=== PATIENT | male | born 2000 | race African-American/Black ===

== ENCOUNTER 2023-05-10 01:15 | Emergency (ER) | payer OTHER ==
[~2023-05-10] VITALS: Ht 193 cm; Wt 113.6 kg
[2023-05-10 04:12] VITALS: TEMP 97.6
[2023-05-10] MEDS ORDERED: NS 1,000 ML IV ONE (04:25)
[2023-05-10 05:06] LABS: ETHYL ALCOHOL (ETHANOL) 0.105 % (0.000-0.010)
[2023-05-10 05:08] LABS: BLOOD UREA NITROGEN 11 MG/DL (9-23); CALCIUM LEVEL 8.8 MG/DL (8.5-10.1); CARBON DIOXIDE LEVEL 26 MMOL/L (20-31); CHLORIDE LEVEL 102 MMOL/L (98-107); CREATININE FOR GFR 1.03 MG/DL (0.70-1.30); GLOMERULAR FILTRATION RATE > 60.0 (>60); GLUCOSE, FASTING 99 MG/DL (60-100); POTASSIUM SERUM 4.2 MMOL/L (3.5-5.1); SODIUM LEVEL 137 MMOL/L (136-145)
[2023-05-10 05:30] VITALS: BP 127/66; O2SAT 99
== END 2023-05-10 05:47 | disposition home or self-care (01) ==
LOC: M ED 01:15
DX: F10.129 Alcohol abuse with intoxication, unspecified (principal); F17.200 Nicotine dependence, unspecified, uncomplicated